=== PATIENT | female | born 2000 | race Caucasian/White ===

== ENCOUNTER 2021-01-23 23:46 | Emergency (ER) | payer BC ==
[~2021-01-23] VITALS: Ht 162.6 cm; Wt 59.1 kg
[2021-01-24] MEDS ORDERED: ALBUTEROL1.25 MG/3 IH (02:19)
[2021-01-24] MEDS ORDERED: PREDNISONE20 MG PO (02:19)
[2021-01-24 02:30] VITALS: BP 125/81; PULSE 85; TEMP 98.3
== END 2021-01-24 02:30 | disposition home or self-care (01) ==
LOC: COL.ER 23:46
DX: J45.909 Unspecified asthma, uncomplicated (principal)
CPT/HCPCS: J7512